=== PATIENT | female | born 1980 | race Caucasian/White ===

== ENCOUNTER 2019-01-17 10:54 | Emergency (ER) | payer OTHER ==
[~2019-01-17] VITALS: Ht 154.9 cm; Wt 65.3 kg
[2019-01-17] MEDS ORDERED: ZYRTEC10 M3 (11:04)
[2019-01-17] MEDS ORDERED: XYZAL5 MG PO (12:49)
[2019-01-17] MEDS ORDERED: MEDROLPACK PO (12:49)
== END 2019-01-17 13:14 | disposition home or self-care (01) ==
LOC: ER 10:54
DX: L50.8 Other urticaria (principal); R09.81 Nasal congestion; H57.89 Other specified disorders of eye and adnexa; T63.444A Toxic effect of venom of bees, undetermined, initial encounter; Y92.89 Other specified places as the place of occurrence of the external cause